=== PATIENT | female | born 1965 | race Caucasian/White ===

== ENCOUNTER → 2024-01-30 10:25 | Outpatient (REF) | payer OTHER, SELFPAY | LOC: HWWDC 10:25 | PROVIDERS: ATTENDING PHYSICIAN Obstetrics & Gynecology Gynecology; FAMILY PHYSICIAN Internal Medicine | DX: Z12.31 Encounter for screening mammogram for malignant neoplasm of breast (principal) | CPT/HCPCS: 77063; 77067 ==

== ENCOUNTER → 2025-01-30 17:30 | Outpatient (REF) | payer OTHER, SELFPAY | LOC: WDC 17:30 | PROVIDERS: ATTENDING PHYSICIAN Obstetrics & Gynecology Gynecology; FAMILY PHYSICIAN Internal Medicine | DX: Z12.39 Encounter for other screening for malignant neoplasm of breast (principal); Z12.31 Encounter for screening mammogram for malignant neoplasm of breast | CPT/HCPCS: 77063; 77067 ==

== ENCOUNTER → 2025-01-31 13:31 | Outpatient (REF) | payer SELFPAY | LOC: RAD 13:31 | PROVIDERS: ATTENDING PHYSICIAN Internal Medicine | DX: F17.200 Nicotine dependence, unspecified, uncomplicated (principal) | CPT/HCPCS: 75571 ==

== ENCOUNTER → 2025-02-15 07:58 | Outpatient (REF) | payer OTHER, SELFPAY | LOC: RAD 07:58 | PROVIDERS: ATTENDING PHYSICIAN Internal Medicine | DX: Z13.820 Encounter for screening for osteoporosis (principal) | CPT/HCPCS: 77080 ==